=== PATIENT | female | born 1985 | race Caucasian/White ===

== ENCOUNTER 2023-04-01 15:31 | Emergency (ER) | payer OTHER, SELFPAY ==
[2023-04-01 16:02] VITALS: BP 102/67; PULSE 77; RESP 18; TEMP 36.6; O2SAT 100; BMI 24.7
[2023-04-01 17:04] LABS: Alanine Aminotransferase 13 IU/L (<35)
--- NOTE | 2023-04-01 17:33 | ED_ITS ---
HPI - Recheck/Abnormal Lab/Rx <Adryan Adrian PA-C - Last Filed: 04/01/23 19:43> General Chief Complaint: Recheck/Abnormal Lab/Rx Stated Complaint: L&I needle stick in OR Time Seen by Provider: 04/01/23 17:03 Source: patient Mode of arrival: Ambulatory History of Present Illness HPI narrative: 37-year-old female presents to the ED status post a accidental needlestick injury sustained in the OR today. 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 Patient was sent by [employer] to the ED for evaluation and treatment. Patient is up-to-date on vaccinations. Related Data Allergies Allergy/AdvReac Type Severity Reaction Status Date / Time No Known Drug Allergies Allergy Verified 04/01/23 16:06 Review of Systems <Adryan Adrian PA-C - Last Filed: 04/01/23 19:43> Review of Systems Narrative: Accidental Needlestick injury in the right palm ROS Unobtainable: All systems reviewed & are unremarkable except as noted in HPI and below Constitutional Constitutional: Denies chills, Denies fatigue, Denies fever(s), Denies frequent falls, Denies lethargy and Denies weakness Eyes Eyes: Denies change in vision, Denies eye discharge, Denies irritation and Denies loss of vision ENT Ears, Nose, Mouth, and Throat: Denies change in voice, Denies dizziness, Denies neck pain, Denies sore throat and Denies throat swelling Cardiovascular Cardiovascular: Denies chest pain, Denies irregular heart rhythm, Denies lightheadedness, Denies palpitations, Denies dyspnea, Denies dyspnea on exertion and Denies orthopnea Respiratory Respiratory: Denies cough, Denies dyspnea, Denies dyspnea on exertion and Denies wheezing Gastrointestinal Gastrointestinal: Denies abdominal pain, Denies change in bowel habits, Denies diarrhea, Denies nausea and Denies vomiting Genitourinary Genitourinary: Denies hematuria, Denies flank pain, Denies urinary incontinence and Denies urinary urgency Musculoskeletal Musculoskeletal: Denies back pain, Denies muscle weakness, Denies neck pain, Denies numbness and Denies tingling Integumentary/Breasts Skin/Breast: Denies pruritus, Denies erythema, Denies rash and Denies wounds Neurologic Neurologic: Denies behavioral changes, Denies confusion, Denies dizziness, Denies frequent falls, Denies loss of vision, Denies numbness, Denies tingling and Denies weakness Psychiatric Psychiatric: Denies anxiety, Denies behavioral changes, Denies confusion, Denies depression, Denies homicidal ideation and Denies suicidal ideation Endocrine Endocrine: Denies fatigue, Denies flushing and Denies palpitations Hematologic/Lymphatic Hematologic/Lymphatic: Denies easy bruising Allergic/Immunologic Allergic/Immunologic: Denies urticaria, Denies throat swelling and Denies whe ezing Patient History <Adryan Adrian PA-C - Last Filed: 04/01/23 19:43> Social History Smoking Status: Never smoker Smoking Status: Never smoker alcohol intake frequency: 0-2 drinks per day Substance Use Type: does not use Exam <Adryan Adrian PA-C - Last Filed: 04/01/23 19:43> Narrative Exam Narrative: Const General:?cooperative, healthy appearing and comfortable HENFL Head:?normal to inspection Ears:?hearing grossly normal bilaterally Nose:?external nose normal Face and sinus:?normal facial exam and sinuses nontender Mouth:?oral mucosae normal Throat:?posterior oropharynx normal Eyes General:?appearance normal, both eyes and all related structures Neck Neck:?normal visual inspection and no lymphadenopathy noted Resp Effort & Inspection:?normal respiratory effort Auscultation:?clear to auscultation bilaterally Cardio Rate:?regular rate Rhythm:?regular rhythm Integumentary Small pinprick sized red dot visualized on right palm where the needle stick happen. No bleeding visualized on exam. Patient is neurovascularly intact. Neuro General:?patient alert, patient awake and patient oriented x3 Initial Vital Signs Initial Vital Signs: Vital Signs Temperature 97.9 F 04/01/23 16:02 Pulse Rate 77 04/01/23 16:02 Respiratory Rate 18 04/01/23 16:02 Blood Pressure 102/67 04/01/23 16:02 Pulse Oximetry 100 04/01/23 16:02 Oxygen Delivery Method Room Air 04/01/23 16:02 <Ryan Lee DO - Last Filed: 04/02/23 07:22> Initial Vital Signs Initial Vital Signs: Vital Signs Temperature 97.9 F 04/01/23 16:02 Pulse Rate 77 04/01/23 16:02 Respiratory Rate 18 04/01/23 16:02 Blood Pressure 102/67 04/01/23 16:02 Pulse Oximetry 100 04/01/23 16:02 Oxygen Delivery Method Room Air 04/01/23 16:02 Course <Adryan Adrian PA-C - Last Filed: 04/01/23 19:43> Vital Signs Vital signs: Vital Signs - 8 hr 04/01/23 16:02 Temperature 97.9 F Pulse Rate 77 Respiratory Rate 18 Blood Pressure 102/67 Pulse Oximetry 100 Oxygen Delivery Method Room Air <Ryan Lee DO - Last Filed: 04/02/23 07:22> Vital Signs Vital signs: Vital Signs - 8 hr 04/01/23 16:02 Temperature 97.9 F Pulse Rate 77 Respiratory Rate 18 Blood Pressure 102/67 Pulse Oximetry 100 Oxygen Delivery Method Room Air MDM - Recheck/Abnormal Lab/Rx <Adryan Adrian PA-C - Last Filed: 04/01/23 19:43> Lab Data Labs: Lab Results 04/01/23 04/01/23 Range/Units 16:45 16:45 ALT 13 (<35) IU/L Hep Bs Antigen Negative (NEGATIVE) s/c Hepatitis C Antibody Negative (NEGATIVE) s/c HIV 1&2 Ab/P24 Ag 4thGn Negative (NEGATIVE) MDM Narrative Medical decision making narrative: 37-year-old female presents to the ED status post a accidental needlestick injury sustained in the OR today. Titers were drawn for hepatitis-C and hepatitis-B. HIV test was ordered. ALT ordered. Counseled patient on HIV PEP prophylaxis, however patient defers at this time. Counseled patient on repeat testing as per the needlestick protocol. Patient agrees to follow-up with employee health. Appropriate paperwork was completed. <Ryan Lee DO - Last Filed: 04/02/23 07:22> Lab Data Labs: Lab Results 04/01/23 04/01/23 Range/Units 16:45 16:45 ALT 13 (<35) IU/L Hep Bs Antigen Negative (NEGATIVE) s/c Hepatitis C Antibody Negative (NEGATIVE) s/c HIV 1&2 Ab/P24 Ag 4thGn Negative (NEGATIVE) Discharge Plan Departure Patient Disposition: Home Clinical Impression: Needlestick injury accident Instructions: DI for Accidental Exposure to Body Fluids Activity Restrictions/Additional Instructions: You were evaluated in the ED for an accidental needlestick injury sustained in the OR today. We have done the necessary blood work including hepatitis-B and C titers, HIV test. You will be notified of results. You will also be notified if the other person has a positive test. You were offered HIV antiviral PEP prophylaxis, which we discussed and you declined. Please follow-up for repeat testing as per the education packet that you received. Please follow-up with employee health connie. Stand Alone Forms: Patient Portal/API <Ryan Lee, DO - Last Filed: 04/02/23 07:22> Cosign ED Attending Cosignature Attestation: Dr Lee Co-Sign Statement: I was available for consultation during this patient's emergency department visit. This chart is signed by myself for administrative purposes only. I did not have direct contact with this patient during this visit. They were seen independently by the APC.
[2023-04-01 18:02] LABS: Hepatitis B Surface Antigen NEGATIVE s/c (NEGATIVE)
[2023-04-01 18:20] LABS: HIV 1 & 2 Ab/Ag 4th Gen Combo NEGATIVE (NEGATIVE); Hep C Virus Ab w/Reflex Quant NEGATIVE s/c (NEGATIVE)
[2023-04-04 11:30] LABS: Hepatitis B Surf Ab Qualitativ Reactive (.)
== END 2023-04-01 18:42 | disposition home or self-care (01) ==
PROVIDERS: Emergency Provider Student in an Organized Health Care Education/Training Program
DX: S61.431A Puncture wound without foreign body of right hand, initial encounter (principal); W26.8XXA Contact with other sharp object(s), not elsewhere classified, initial encounter; Y92.234 Operating room of hospital as the place of occurrence of the external cause; Y99.0 Civilian activity done for income or pay; Z77.21 Contact with and (suspected) exposure to potentially hazardous body fluids
CPT/HCPCS: 36415; 84460; 86706; 86803; 87340; 87389; 99282; 99283